=== PATIENT | female | born 1990 | race Caucasian/White ===

== ENCOUNTER → 2020-08-28 | Outpatient (CLI) | payer SELFPAY ==
--- NOTE | 2020-08-29 06:58 | US ---
EXAMINATION TYPE: US kidneys/renal and bladder DATE OF EXAM: 08/28/2020 COMPARISON: CT March 29, 2015 CLINICAL HISTORY: R10.2 female pelvic pain, R10.9 flank pain. EXAM MEASUREMENTS: Right Kidney: 10.3 x 4.0 x 5.4 cm Left Kidney: 10.3 x 5.6 x 4.7 cm Right Kidney: No hydronephrosis or masses seen Left Kidney: Superior pole obscured by bowel gas, no hydronephrosis or masses seen Bladder: wnl There is no evidence for hydronephrosis at this point in time. No nephrolithiasis is seen. No mike s are identified. The urinary bladder is satisfactorily distended. Some internal echoes may be prese nt. Bilateral ureteral jets are not seen. IMPRESSION: No hydronephrosis noted bilaterally. Bladder not completely anechoic, correlate for acute infection or cystitis.
--- NOTE | 2020-08-29 06:59 | US ---
EXAMINATION TYPE: US pelvic complete DATE OF EXAM: 08/28/2020 COMPARISON: CT March 29, 2015. Transvaginal ultrasound September 29, 2015 CLINICAL HISTORY: R10.2 female pelvic pain, R10.9 flank pain. TECHNIQUE: Transabdominal (TA). Date of LMP: 08/12/20 EXAM MEASUREMENTS: Uterus: 9.3 x 5.2 x 5.2 cm Endometrial Stripe: 0.8 cm Right Ovary: 3.2 x 2.4 x 2.2 cm Left Ovary: 5.3 x 4.5 x 4.9 cm 1. Uterus: Anteverted 2. Endometrium: IUD in place, wnl 3. Right Ovary: wnl 4. Left Ovary: 4.6 x 3.6 x 4.4cm simple appearing cyst. 5. Bilateral Adnexa: wnl 6. Posterior cul-de-sac: wnl Anteverted uterus redemonstrated. Central metallic IUD again seen. Endometrial stripe thickness withi n normal limits. No free fluid. Both ovaries identified. There is 4.6 cm simple appearing thin-walled cyst in the left ovary. IMPRESSION: Source of pain not identified. Incidental benign-appearing 4.6 cm left ovarian cyst noted on current study.
== END | disposition home or self-care (01) ==
LOC: RADUSWWP 14:54
PROVIDERS: ATTEND Internal Medicine
DX: N83.202 Unspecified ovarian cyst, left side (principal); R10.2 Pelvic and perineal pain; R10.9 Unspecified abdominal pain; Z88.0 Allergy status to penicillin
CPT/HCPCS: 76770; 76856